=== PATIENT | female | born 1995 | race Two or more races ===

== ENCOUNTER 2025-02-23 08:57 | Outpatient (AMB) | payer OTHER, SELFPAY ==
--- NOTE | 2025-02-23 09:11 | AMB.OBINITIA ---
Vital Signs 02/23/25 09:12 Height 1.63 m Height Method Stated Weight 74.162 kg Weight Measurement Method Standing Scale BMI 28.0 BP 109/69 Blood Pressure Source Automatic Cuff Blood Pressure Location Right Upper Arm Position Sitting Respiration 18 Pulse 69 Pulse Source Monitor Temp 97.9 F Temp Source Temporal Artery Scan Pulse Oximetry (%) 99 Oxygen Delivery Method Room Air Allergies/Home Meds Allergies & Medications Allergies No Known Allergies Allergy (Verified 02/23/25 09:16) Medication Reconciliation No Known Home Medications 02/23/25 [History Confirmed 02/23/25] Intake Visit Data Collection New Patient or Established: New Patient (never been to [facility]) Reason for Visit:: OBI Seen by Clinical Staff ONLY (RN/MA): 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 Do You Feel Safe at Home: Yes Authorities Contacted: N/A PCP or OBGYN visit in last 3 months: No Hx Now: Yes Last menstrual period: 09/27/24 Pain Present Currently: No Pain Scale Used: Yan-Quintero/Numerical Pain scale:: 0 Smoking Status Smoking Status: Never smoker Immunizations Flu Vaccine in the Last 12 Months: No Flu Vaccine Exclusion Criteria: No Exclusion Criteria Questionnaires Covid-19 Vaccine Questionnaire Has patient been vacinated for Covid-19 Have you been vacinated for Covid-19: No PHQ-9 PHQ-2 Over the last 2 weeks, how often have you been bothered by any of the following problems? 1. Little interest or pleasure in doing things: not at all 2. Feeling down, depressed, or hopeless: not at all Total score: 0 PHQ-9 3. Trouble falling or staying asleep, or sleeping too much: Not at all 4. Feeling tired or having little energy: Not at all 5. Poor appetite or overeating: Not at all 6. Feeling bad about yourself - or that you are a failure or have let yourself or your family down: Not at all 7. Trouble concentrating on things, such as reading the newspaper or watching television: Not at all 8. Moving or speaking so slowly that other people could have noticed? - Or the opposite - being so fidgety or restless that you have been moving around a lot more than usual: not at all 9. Thoughts that you would be better off or of hurting yourself in some way: Not at all Total score: 0 If you checked off any problems, how difficult have these problems made it for you to do your work, take care of things at home, or get along with other people?: not difficult at all Source: Developed by Drs. Chuck Cortes, Cecilia Garcia, Triston Hayes and colleagues, with an educational alexander from [employer]. Depression screen completed yes Social History Living Situation History Marital Status: Lives With: Family Housing: Apartment Tobacco History Smoking Status: Never smoker Second Hand Smoke Exposure: No Alcohol History Alcohol Intake: Never Domestic Abuse History Do You Feel Safe at Home: Yes OB Initial Visit OB Flowsheet OB Flowsheet Initial Weight: Not Recorded Date <del>?</del> EGA Weight BP Alb Glu CTX Pres Fundal ht FHR Mov Dilation Station Effacement Hx Notes Visit Note 02/23/25 <del>?</del> 21w 2d 74.162 kg 109/69 absent unknown 21 147 active care start in [place], EDC confirmed by 7 week US on 11/27/2024 and genetic carrier screening negative / She will be sent for anatomy scan / she has had a tummytuck in the past /A positive / RPR not reactive ,Rubella immune,HbSAg Negative,counselled on Tdap and Flu vaccine / not sure she wants taking vitamins Menstrual History Menstrual reliability: definite Flow: heavy Menstrual regularity: regular Monthly: Yes Age at menarche: 12 On control pills at conception: No OB History : 2 Para: 0 Hx Total # of Abortions (Spontaneous & Elective): 1 # of Living Children: 0 Infection History & Risk Evaluation History of STDs: none Patient or partner has history of Genital Herpes: No Genetic Screening & History Genetic Screening/Teratology Counseling - Includes patient, baby's father, or anyone in either family with: 1. Patient's age 35 years or older as of estimated date of delivery: No 2. Thalassemia (Ukrainian, Kazakh, Mediterranean, or Background); MCV less than 80: No 3. Neural Tube Defect (Meningomyelocele, Spina Bifida, or Anencephaly): No 4. Congenital Heart Defect: No 5. Down Syndrome: No 6. Niles-Sachs (Ashkenazi Mandaeism, Cajun, Romanian Greek): No 7. Poonam Disease (Ashkenazi Mandaeism): No 8. Familial Dysautonomia (Ashkenazi Mandaeism): No 9. Sickle Cell Disease or Trait (): No 10. Hemophilia or other blood disorders: No 11. Muscular Dystrophy: No 12. Cystic Fibrosis: No 13. Valorie's Chorea: No 14. Mental Retardation/Autism: No 15. Other inherited genetic or chromosomal disorder: No 16. Maternal Metabolic Disorder (EG,TYPE 1 Diabetes, PKU): No 17. Patient or baby's father had a child with defects not listed above: No 18. Recurrent loss or a stillbirth: No 19. Medications (including supplements, vitamins, herbs or otc drugs)/illicit/recreational drugs/alcohol since last menstrual period: No 20. Any other: No Infection History 1. Live with someone with TB or exposed to TB: No Other (see comments) Source: [employer] Review of Systems Review of Systems Systems Reviewed: All systems reviewed, normal except as documented Exam Narrative Physical exam: Alert and oriented x 3 no shortness of breath Pain no chest pain no palpitations Chest clear bilaterally no additional sounds, no wheezing no rales CVS regular rate and rhythm No CVAT Abdomen nontender, normal bowel sounds No guarding no rigidity No hernias Results Objective Laboratory: A Positive RPR NR Rubella immune HbSAg negative genetic screen negative expecting a girl Imaging: ist trimester US done in [place] c/w dates Will order anatomy scan Office Procedures OBC Clinic LOC & Office Proc's Nursing/Assessment Patient Status: Initial/New Patient OB Clinic Nursing Assessment: Medication Reconciliation, Update PMH in EMR and Vital Signs OB Clinic Coordination of Care: Complex Care and Chronic Disease 1-5, Education Complex Pt/Fam, Consent,records obtained, informed consent, Lab and Imaging orders, Results/Orders obtained and Staff clarify orders Special Needs: Heart tones New Patient Charge New Patient Point Assignment: [id number] New Patient Point Charge: ACADEMIC ASSOCIATE Level 4 ([id number]) Assessment & Plan Diagnosis / Problem List (1) : Status: Acute Additional Plan order anatomy scan continue vitamins Follow Up: 4 Weeks
[2025-02-23 09:12] VITALS: BP 109/69; PULSE 69; RESP 18; TEMP 36.6; O2SAT 99; BMI 28.0
== END 2025-02-23 10:20 | disposition home or self-care (01) ==
LOC: HODSOBC 08:57
PROVIDERS: Supervising Provider Obstetrics & Gynecology; Visit Provider Obstetrics & Gynecology
DX: Z34.82 Encounter for supervision of other normal pregnancy, second trimester (principal); Z3A.21 21 weeks gestation of pregnancy
CPT/HCPCS: 99204; G0463

== ENCOUNTER 2025-03-20 14:29 | Outpatient (AMB) | payer OTHER, SELFPAY ==
[2025-03-20 14:51] VITALS: BP 113/69; PULSE 77; RESP 16; TEMP 36.6; O2SAT 98; BMI 28.5
--- NOTE | 2025-03-20 14:51 | OBCLNT_ITS ---
Vital Signs 03/20/25 14:51 Height 1.63 m Height Method Stated Weight 75.92 kg Weight Measurement Method Standing Scale BMI 28.5 BP 113/69 Blood Pressure Source Automatic Cuff Blood Pressure Location Left Upper Arm Position Sitting Respiration 16 Pulse 77 Pulse Source Monitor Temp 97.8 F Temp Source Oral Pulse Oximetry (%) 98 Oxygen Delivery Method Room Air Allergies/Home Meds Allergies & Medications Allergies No Known Allergies Allergy (Verified 03/20/25 14:52) Medication Reconciliation No Known Home Medications 02/23/25 [History Confirmed 03/20/25] Immunizations Immunizations Flu Vaccine in the Last 12 Months: No Flu Vaccine Exclusion Criteria: Refused by Patient Care OB Visit Log OB Flowsheet Initial Weight: Not Recorded Date -?-?-?-?-?-?-?-?-?-?-?-?- EGA Weight BP Alb Glu CTX Pres Fundal ht FHR Mov Dilation Station Effacement Hx Notes Visit Note 02/23/25 -?-?-?-?-?-?-?-?-?-?-?-?- 21w 2d 74.162 kg 109/69 absent unknown 21 147 active care start in [place], EDC confirmed by 7 week US on 11/27/2024 and genetic carrier screening negative / She will be sent for anatomy scan / she has had a tummytuck in the past /A positive / RPR not reactive ,Rubella immune,HbSAg Negative,counselled on Tdap and Flu vaccine / not sure she wants taking vitamins 03/20/25 -?-?-?-?-?-?-?-?-?-?-?-?- 24w 6d 75.92 kg 113/69 SAMUEL Calculator Estimated Delivery Date Method Current WG Current Estimate 07/04/25 LMP (Certain) 24w 6d Notes Visit Date: 03/20/25 Last Updated by: Perla Mena MD care start in [place], EDC confirmed by 7 week US on 11/27/2024 and genetic carrier screening negative / She was sent for anatomy scan / she has had a tummytuck in the past /A positive / RPR not reactive ,Rubella immune, HbSAg Negative, counselled on Tdap and Flu vaccine / not sure she wants them / she is taking vitamins / discussed vaccines again and ordered RPR/CBC and One hour GTT/ needs another referral for anatomy scan as the [place] office does not have early date s / follow up in 4 weeks / referral made to Dr Melanie austin Office Procedures OBC Clinic LOC & Office Proc's Nursing/Assessment Patient Status: Established Patient OB Clinic Nursing Assessment: Medication Reconciliation, Update PMH in EMR and Vital Signs OB Clinic Coordination of Care: Complex Care and Chronic Disease 1-5, Consent,records obtained, informed consent, Education Simp Pt/Fam, 1 Ins Authorization, Lab and Imaging orders, Results/Orders obtained and Staff clarify orders Special Needs: Heart tones Established Patient Charge Established Patient Point Assignment: 150 Established Patient Point Charge: EP Level 4 (120-155) Assessment & Plan Diagnosis / Problem List (1) : Status: Acute (2) H/O abdominoplasty: Status: Acute Plan plan anatomy and growth scan / referred to Dr Austin [facility] Additional Plan CBC / RPR and one hour GTT ordered / refused flu and Tdap / 24.6 weeks today /A positive Follow Up: 4 Weeks
== END 2025-03-20 15:38 | disposition home or self-care (01) ==
LOC: HODSOBC 14:29
PROVIDERS: Supervising Provider Obstetrics & Gynecology; Visit Provider Obstetrics & Gynecology
DX: Z34.92 Encounter for supervision of normal pregnancy, unspecified, second trimester (principal); Z3A.24 24 weeks gestation of pregnancy; Z28.21 Immunization not carried out because of patient refusal; Z98.890 Other specified postprocedural states
CPT/HCPCS: 99214; G0463

== ENCOUNTER 2025-04-17 11:28 | Outpatient (AMB) | payer OTHER, SELFPAY ==
[2025-04-17 11:45] VITALS: BP 126/78; PULSE 90; RESP 18; TEMP 36.6; O2SAT 99; BMI 30.1
--- NOTE | 2025-04-17 11:45 | OBCLNT_ITS ---
Vital Signs 04/17/25 11:45 Height 1.63 m Height Method Stated Weight 79.946 kg Weight Measurement Method Standing Scale BMI 30.1 BP 126/78 Blood Pressure Source Automatic Cuff Blood Pressure Location Left Upper Arm Position Sitting Respiration 18 Pulse 90 Pulse Source Monitor Temp 97.9 F Temp Source Oral Pulse Oximetry (%) 99 Oxygen Delivery Method Room Air Allergies/Home Meds Allergies & Medications Allergies No Known Allergies Allergy (Verified 04/17/25 11:46) Medication Reconciliation vitamins-iron fumarate 66 mg iron-folic acid 1 mg tablet tab PO 04/17/25 [History Confirmed 04/17/25] Immunizations Immunizations Flu Vaccine in the Last 12 Months: No Flu Vaccine Exclusion Criteria: Refused by Patient Care OB Visit Log OB Flowsheet Initial Weight: Not Recorded Date -?-?-?-?-?-?-?-?-?-?-?-?- EGA Weight BP Alb Glu CTX Pres Fundal ht FHR Mov Dilation Station Effacement Hx Notes Visit Note 02/23/25 -?-?-?-?-?-?-?-?-?-?-?-?- 21w 2d 74.162 kg 109/69 absent unknown 21 147 active care start in [place], EDC confirmed by 7 week US on 11/27/2024 and genetic carrier screening negative / She will be sent for anatomy scan / she has had a tummytuck in the past /A positive / RPR not reactive ,Rubella immune,HbSAg Negative,counselled on Tdap and Flu vaccine / not sure she wants taking vitamins 03/20/25 -?-?-?-?-?-?-?-?-?-?-?-?- 24w 6d 75.92 kg 113/69 04/17/25 -?-?-?-?-?-?-?-?-?-?-?-?- 28w 6d 79.946 kg 126/78 absent cephalic 28 148 active SAMUEL Calculator Estimated Delivery Date Method Current WG Current Estimate 07/04/25 LMP (Certain) 28w 6d Notes Visit Date: 04/17/25 Last Updated by: Perla Mena MD patient is 28.6 weeks today / one hour GTT is 108 on 04/03/2025 / has anatomy scan today in [place] and will follow up in 3 weeks care start in [place], EDC confirmed by 7 week US on 11/27/2024 and genetic carrier screening negative / She was sent for anatomy scan / she has had a tummytuck in the past /A positive / RPR not reactive ,Rubella immune, HbSAg Negative, counselled on Tdap and Flu vaccine / not sure she wants them / she is taking vitamins / discussed vaccines again and ordered RPR/CBC and One hour GTT/ Visit Date: 03/20/25 Last Updated by: Perla Mena MD care start in [place], EDC confirmed by 7 week US on 11/27/2024 and genetic carrier screening negative / She was sent for anatomy scan / she has had a tummytuck in the past /A positive / RPR not reactive ,Rubella immune, HbSAg Negative, counselled on Tdap and Flu vaccine / not sure she wants them / she is taking vitamins / discussed vaccines again and ordered RPR/CBC and One hour GTT/ needs another referral for anatomy scan as the [place] office does not have early date s / follow up in 4 weeks / referral made to Dr Melanie austin Office Procedures OBC Clinic LOC & Office Proc's Nursing/Assessment Patient Status: Established Patient OB Clinic Nursing Assessment: Medication Reconciliation, Update PMH in EMR and Vital Signs OB Clinic Coordination of Care: Complex Care and Chronic Disease 1-5, Consent,records obtained, informed consent, Education Simp Pt/Fam, 1 Ins Authorization, Lab and Imaging orders, Results/Orders obtained and Staff clarify orders Special Needs: Heart tones Established Patient Charge Established Patient Point Assignment: 150 Established Patient Point Charge: EP Level 4 (120-155) Assessment & Plan Diagnosis / Problem List (1) H/O abdominoplasty: Status: Acute (2) : Status: Acute Qualifiers: Weeks of gestation: 28 weeks Qualified Code(s): Z3A.28 - 28 weeks gestation of Assessment and Plan: / appropriate growth/ refused Flu vaccine patient is 28.6 weeks today / one hour GTT is 108 on 04/03/2025 / has anatomy scan today in [place] and will follow up in 3 weeks Additional Assessment follow up in 2 to 3 weeks
== END 2025-04-17 12:16 | disposition home or self-care (01) ==
LOC: HODSOBC 11:28
PROVIDERS: Supervising Provider Obstetrics & Gynecology; Visit Provider Obstetrics & Gynecology
DX: Z34.03 Encounter for supervision of normal first pregnancy, third trimester (principal); Z3A.28 28 weeks gestation of pregnancy; Z98.890 Other specified postprocedural states; Z28.21 Immunization not carried out because of patient refusal
CPT/HCPCS: 99214; G0463